=== PATIENT | male | born 1995 | race Two or more races ===

== ENCOUNTER 2022-08-20 12:16 | Emergency (ER) | payer OTHER ==
[2022-08-20] MEDS ORDERED: Tetracaine HCl/PF 0.5% 4 ML Bottle EYELF ONE (12:39)
[2022-08-20] MEDS ORDERED: Diphtheria,Pertussis(Acell),Tetanus Vaccine 0.5 ML Syringe IM ONE (14:30)
[2022-08-20] MEDS ORDERED: Polymyxin B/Trimethoprim 10 ML Bottle EYELF ONE (14:32)
[2022-08-20] MEDS ORDERED: Sulfacetamide 10% Ophth Soln 15 ML Bottle EYELF ONE (15:15)
== END 2022-08-20 15:42 | disposition home or self-care (01) ==
LOC: MW.ED 12:16
DX: S05.52XA Penetrating wound with foreign body of left eyeball, initial encounter (principal); Z23 Encounter for immunization; X58.XXXA Exposure to other specified factors, initial encounter
CPT/HCPCS: 65220; 70480; 70480-26; 90471; 90715; 99283-25; A9270-GY